=== PATIENT | male | born 1990 | race Caucasian/White ===

== ENCOUNTER 2021-01-29 16:18 | Emergency (ER) | payer SELFPAY ==
[~2021-01-29] VITALS: Ht 170.2 cm; Wt 72.6 kg
[2021-01-29 17:09] VITALS: BP_SYST 120
--- NOTE | 2021-01-29 20:55 | NUR ---
Patient to ER bed 02 to gown for evaluation. Side rails up.
--- NOTE | 2021-01-29 21:26 | NUR ---
PATIENT AAOX4 AND AMBULATORY C/O POSSIBLE HERNIA SINCE YESTERDAY. PER PATIENT HE FEELS HE HAS A BUMP TO HIS RIGHT GROIN AREA. CURRENTLY STATING 4/10 ON THE PAIN SCALE. DENIES TAKING ANY MEDICATION AT HOME FOR THE PAIN. NO MED/SURG HX. VSS.
--- NOTE | 2021-01-29 22:22 | NUR ---
DR. SCHUMACHER AT BEDSIDE FOR EVALUATION.
[2021-01-29] MEDS ORDERED: IBUP-1970 PO (23:10)
[2021-01-29 23:35] VITALS: BP_SYST 120
--- NOTE | 2021-01-29 23:35 | NUR ---
Patient given written and verbal discharge instructions and verbalizes understanding. ER MD discussed with patient the results and treatment provided. Patient in stable condition. ID arm band removed. Rx of ibuprofen given. Patient educated on pain management and to follow up with PMD. Pain Scale 0/10. Opportunity for questions provided and answered. Medication side effect fact sheet provided.
== END 2021-01-29 23:35 | disposition home or self-care (01) ==
LOC: SED 16:18
DX: K40.90 Unilateral inguinal hernia, without obstruction or gangrene, not specified as recurrent (principal); Z79.899 Other long term (current) drug therapy
CPT/HCPCS: 99282